=== PATIENT | female | born 1970 | race Caucasian/White ===

== ENCOUNTER 2016-06-09 18:16 | Emergency (ER) | payer OTHER ==
[~2016-06-09] VITALS: Ht 157.5 cm; Wt 95.8 kg
[2016-06-09 18:26] VITALS: TEMP 37.3; Ht 157.5 cm; Wt 95.8 kg
[2016-06-09] MEDS ORDERED: HYDROmorphone INJ 1 MG/ML SYR IM STA (18:44)
[2016-06-09] MEDS ORDERED: ACETAMINOPHEN 500 MG TAB PO STA (18:44)
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
[2016-06-09] MEDS ORDERED: HYDR2TAB48 PO (20:19)
[2016-06-09] MEDS ORDERED: GABA-113 PO (20:20)
[2016-06-09] MEDS ORDERED: PANT40TA PO (20:21)
[2016-06-09] MEDS ORDERED: LEVO100T7 PO (20:21)
[2016-06-09] MEDS ORDERED: TRAZ100T29 PO (20:22)
[2016-06-09] MEDS ORDERED: POLY1POW80 PO (20:24)
[2016-06-09] MEDS ORDERED: MRLP17 (20:24)
[2016-06-09] MEDS ORDERED: ALPR-411 PO (20:25)
[2016-06-09] MEDS ORDERED: PROM25TA9 PO (20:26)
[2016-06-09] MEDS ORDERED: FLUO20CA20 PO (20:27)
[2016-06-09] MEDS ORDERED: HYOS1TAB PO (20:28)
[2016-06-09] MEDS ORDERED: SUMA100T16 PO (20:29)
[2016-06-09] MEDS ORDERED: ONDA8TAB6 PO (20:29)
[2016-06-09 20:44] VITALS: BP 120/65
[2016-06-09] MEDS ORDERED: PERCOCET HOME PACK PO ONE (21:15)
[2016-06-09] MEDS ORDERED: ALPRAZOLAM 0.5 MG TAB PO STA (21:37)
[2016-06-09] MEDS ORDERED: TRAZODONE HCL 100 MG TAB PO SCH (21:45)
[2016-06-09] MEDS ORDERED: GABAPENTIN 300 MG CAP PO SCH (21:45)
[2016-06-09] MEDS ORDERED: EMPTY 8 DRAM VIAL ONE (21:49)
[2016-06-09 22:20] VITALS: PULSE 72; O2SAT 97
== END 2016-06-09 22:22 | disposition home or self-care (01) ==
LOC: C.EDB 18:20
DX: M25.511 Pain in right shoulder (principal); R10.84 Generalized abdominal pain; Z93.2 Ileostomy status; F17.200 Nicotine dependence, unspecified, uncomplicated; V44.6XXA Car passenger injured in collision with heavy transport vehicle or bus in traffic accident, initial encounter; Y93.89 Activity, other specified; Y92.89 Other specified places as the place of occurrence of the external cause; Y99.8 Other external cause status